=== PATIENT | male | born 1975 | race Caucasian/White ===

== ENCOUNTER 2018-11-03 23:41 | Emergency (ER) | payer SELFPAY ==
[~2018-11-03] VITALS: Ht 195.6 cm; Wt 71.7 kg
[2018-11-04] VITALS: BP 147/95
--- NOTE | 2018-11-04 | NUR ---
ER Nurse Note: Pt walked into ER c/o being depressed and SI with no plan. Pt stated he is having personal crisis which is making him more depressed. Pt a&ox4, VSS, no signs of distress. Pt ambulatory, skin intact. ERMD at pt side; will continue to montior.
[2018-11-04 00:38] VITALS: BP 147/95
--- NOTE | 2018-11-04 00:38 | Emergency Room Report ---
History of Present Illness General Chief Complaint: Behavioral Complaint Source: Patient Present Illness HPI This is a 43-year-old male with no past bruits. He presents with chief complaint of feeling depressed. He drinks daily. He is depressed because of multiple issues. He said that he can get a job. He lost his license and secondary to DUI. He is from his . He said he fell over 1 AM and felt depressed. No suicidal plan. His been ongoing for over 5 months. Denies any homicidal thoughts or delusion or hallucination. Has not seen any psychiatrist or psychologist. Allergies: Coded Allergies: No Known Allergies (Unverified , 11/03/18) Patient History Past Medical History: see triage record, old chart reviewed Past Surgical History: other Pertinent Family History: none Social History: Reports: smoking, alcohol use Immunizations: other Reviewed Nursing Documentation: PMH: Agreed; PSxH: Agreed Nursing Documentation-PMH Past Medical History: No Stated History Review of Systems Eye: Denies: eye pain, blurred vision ENT: Denies: ear pain, nose congestion, throat swelling Respiratory: Denies: cough, shortness of breath Cardiovascular: Denies: chest pain, palpitations Gastrointestinal: Denies: abdominal pain, diarrhea, nausea, vomiting Musculoskeletal: Denies: back pain, joint pain Skin: Denies: rash Neurological: Denies: headache, numbness Endocrine: Denies: increased thirst, increased urine Hematologic/Lymphatic: Denies: easy bruising All Other Systems: negative except mentioned in HPI Physical Exam Vital Signs Date Time Temp Pulse Resp B/P (MAP) Pulse Ox O2 Delivery O2 Flow Rate FiO2 11/03/18 23:49 97.5 100 16 147/95 94 Room Air vitals normal Sp02 EP Interpretation: reviewed, normal General Appearance: well appearing, no apparent distress, alert Head: normocephalic, atraumatic Eyes: bilateral eye PERRL, bilateral eye EOMI ENT: hearing grossly normal, normal pharynx Neck: full range of motion, supple, no meningismus Respiratory: chest non-tender, lungs clear, normal breath sounds Cardiovascular #1: regular rate, rhythm, no murmur Gastrointestinal: normal bowel sounds, non tender, no mass, no organomegaly, no bruit, non-distended Musculoskeletal: back normal, gait/station normal, normal range of motion Neurologic: alert, oriented x3 Psychiatric: depressed affect Skin: warm/dry Medical Decision Making Diagnostic Impression: Primary Impression: Behavioral disorder Additional Impressions: Alcohol abuse Depression Qualified Codes: F32.9 - Major depressive disorder, single episode, unspecified ER Course Patient presents with depression and alcohol abuse. He keep wanting to go smoke a cigarette. I told patient that he cannot leave to go smoke. He did try to smoke in his room which I told we can do. He went to the bathroom and smoke in the bathroom. Explained to the patient that this is unacceptable. At this point, patient got up and walked out of the ER. Even though he is drinking tonight, he is talking without slurred speech and walking without any difficulty. He has no particular plans of suicidal attempt. Last Vital Signs Date Time Temp Pulse Resp B/P (MAP) Pulse Ox O2 Delivery O2 Flow Rate FiO2 11/03/18 23:49 97.5 100 16 147/95 94 Room Air Status: unchanged Disposition: HOME, SELF-CARE Condition: Stable Scripts No Active Prescriptions or Reported Meds Referrals: NOT CHOSEN IPA/,REFERRING (PCP) Patient Instructions: Self-Destructive Behavior Adam Ken MD Nov 04, 2018 00:38
--- NOTE | 2018-11-04 00:38 | NUR ---
ER Nurse Note: Pt sated he wanted to smoke, ERMD, nurse and other staff told him he cannot smoke. Pt decided not to comply; walked out. Pt VSS, no signs of distress. Pt left with all belonging.
--- NOTE | 2018-11-04 00:40 | NUR ---
ER Nurse Note: Pt seen, treated, medically cleared for discharge by ER MD. Pt refused to sign discharge forms. Pt left with all belongings, stable gait, via own transportation.
== END 2018-11-04 00:38 | disposition home or self-care (01) ==
LOC: EMR 23:59
DX: F32.9 Major depressive disorder, single episode, unspecified (principal); F91.9 Conduct disorder, unspecified; F10.10 Alcohol abuse, uncomplicated; F17.200 Nicotine dependence, unspecified, uncomplicated
CPT/HCPCS: 99281